=== PATIENT | female | born 1970 ===

== ENCOUNTER 2021-06-29 14:50 | Inpatient (IN) | payer OTHER ==
[~2021-06-29] VITALS: Ht 154.9 cm; Wt 113.0 kg
[2021-06-29] MEDS ORDERED: Vitamin D2000 UNIT PO (15:07)
[2021-06-29 15:45] LABS: BASOPHILS ABSOLUTE AUTO 0.04 K/mm3 (0.00-0.23); BASOPHILS PERCENT AUTO 0 % (0-2); EOSINOPHILS ABSOLUTE AUTO 0.14 K/mm3 (0.00-0.68); EOSINOPHILS PERCENT AUTO 1 % (0-6); Hematocrit 35.4 % (33.0-51.0); Hemoglobin 11.4 g/dL (11.5-16.0); IMMATURE GRAN ABSOLUTE AUTO 0.19 K/mm3 (0.00-0.10); IMMATURE GRAN PERCENT AUTO 2 % (0-1); LYMPHOCYTES ABSOLUTE AUTO 0.81 K/mm3 (0.84-5.20); LYMPHOCYTES PERCENT AUTO 7 % (21-46); MONOCYTES PERCENT AUTO 5 % (4-13); Mean Corpuscular HGB 29.4 pg (26.0-34.0); Mean Corpuscular HGB Conc 32.2 g/dL (31.5-36.5); Mean Corpuscular Volume 91 fL (80-100); Mean Platelet Volume 10.8 fL (9.1-12.4); NEUTROPHILS ABSOLUTE AUTO 9.52 K/mm3 (1.96-9.15); NEUTROPHILS PERCENT AUTO 85 % (41-73); NRBC ABSOLUTE 0.05 K/mm3 (0.00-0.02); NRBC Auto 0.4 /100 WBC (0.0-0.2); Platelet Count 316 K/mm3 (150-400); RDW Standard Deviation 46.7 fL (35.1-46.3); Red Blood Cell Count 3.88 M/mm3 (3.80-5.20)
[2021-06-29 16:09] LABS: Alanine Aminotransfer (ALT/SGP 32 U/L (12-78); Albumin, Blood 2.4 g/dL (3.4-5.0); Albumin/Globulin Ratio 0.5 (0.8-1.8); Alk Phos 127 U/L (50-136); Anion Gap 9 mmol/L (6-16); Aspartate Aminotrans (AST/SGOT 25 U/L (12-37); Beta HCG, Quantitative, Serum 2 mIU/mL (0-3); Bilirubin, Total 0.7 mg/dL (0.1-1.0); Blood Urea Nitrogen 11 mg/dL (8-24); Bun/Creatinine Ratio 16.1 (12.0-20.0); CO2, Blood 25 mmol/L (21-32); Calcium, Blood 8.1 mg/dL (8.5-10.1); Chloride, Blood 103 mmol/L (98-108); Creatinine, Blood 0.68 mg/dL (0.40-1.00); Globulin, Blood 4.8 g/dL (2.2-4.0); Glomerular Filtration Rate >60 (60-); Glucose, Blood 94 mg/dL (70-99); Potassium, Blood 3.3 mmol/L (3.5-5.5); Sodium, Blood 137 mmol/L (136-145); Total Protein, Blood 7.2 g/dL (6.4-8.2)
[2021-06-29 16:37] LABS: SARS-Cov-2 (COVID-19) PCR, MMC POSITIVE (NEGATIVE)
[2021-06-29 19:56] LABS: International Normalized Ratio 1.17; Prothrombin Time Results 12.5 Sec (9.7-11.5)
[2021-06-30 04:21] LABS: Anion Gap 10 mmol/L (6-16); Blood Urea Nitrogen 12 mg/dL (8-24); Bun/Creatinine Ratio 17.8 (12.0-20.0); CO2, Blood 23 mmol/L (21-32); Calcium, Blood 8.2 mg/dL (8.5-10.1); Chloride, Blood 105 mmol/L (98-108); Creatinine, Blood 0.67 mg/dL (0.40-1.00); Glomerular Filtration Rate >60 (60-); Glucose, Blood 110 mg/dL (70-99); Potassium, Blood 4.1 mmol/L (3.5-5.5); Sodium, Blood 138 mmol/L (136-145)
--- NOTE | 2021-06-30 06:31 | NUR ---
SHIFT SUMMARY PATIENT ARRIVED TO ROOM 330 VIA STRETCHER. ABLE TO SELF TRANSFER BETWEEN STRETCHER AND BED. PATIENT IS ALERT AND ORIENTED. NO COMPLAINTS OF PAIN. DOES HAVE SHORTNESS OF BREATH AND TACHYPNEA. ON 15 LITERS O2 VIA NRB. NO ACUTE ISSUES NOTED OVERNIGHT. IVS PATENT AND FLUSHED. BED IN LOWEST POSITION WITH WHEELS LOCKED. CALL LIGHT WITHIN REACH REPORT GIVEN TO ONCOMING RN.
--- NOTE | 2021-06-30 18:27 | NUR ---
PT RESTING IN BED AFTER DINNER AND PM MEDICATION ADMIN. PT REMAINS ON BEDREST WITH IND BSC PRIV. PT ALERT AND ORIENTED X4, MAKES NO COMPLAINTS AT THIS TIME. IV HEP RUNNING AND IV SITES WNL. STAFF WILL CONTINUE TO MONITOR.
[2021-07-01 00:42] LABS: Hematocrit 30.5 % (33.0-51.0); Hemoglobin 9.8 g/dL (11.5-16.0); Mean Corpuscular HGB 29.6 pg (26.0-34.0); Mean Corpuscular HGB Conc 32.1 g/dL (31.5-36.5); Mean Corpuscular Volume 92 fL (80-100); Mean Platelet Volume 10.4 fL (9.1-12.4); Platelet Count 322 K/mm3 (150-400); RDW Coefficient Variation 14.4 % (11.7-14.2); RDW Standard Deviation 48.4 fL (35.1-46.3); Red Blood Cell Count 3.31 M/mm3 (3.80-5.20); White Blood Cell Count 11.34 K/mm3 (4.00-11.30)
[2021-07-01 01:00] LABS: Alanine Aminotransfer (ALT/SGP 40 U/L (12-78); Albumin, Blood 2.3 g/dL (3.4-5.0); Albumin/Globulin Ratio 0.5 (0.8-1.8); Alk Phos 110 U/L (50-136); Anion Gap 7 mmol/L (6-16); Aspartate Aminotrans (AST/SGOT 33 U/L (12-37); Bilirubin, Total 0.3 mg/dL (0.1-1.0); Blood Urea Nitrogen 14 mg/dL (8-24); Bun/Creatinine Ratio 22.6 (12.0-20.0); CO2, Blood 25 mmol/L (21-32); Calcium, Blood 7.7 mg/dL (8.5-10.1); Chloride, Blood 108 mmol/L (98-108); Creatinine, Blood 0.62 mg/dL (0.40-1.00); Globulin, Blood 4.2 g/dL (2.2-4.0); Glomerular Filtration Rate >60 (60-); Glucose, Blood 155 mg/dL (70-99); Potassium, Blood 3.9 mmol/L (3.5-5.5); Sodium, Blood 140 mmol/L (136-145); Total Protein, Blood 6.5 g/dL (6.4-8.2)
--- NOTE | 2021-07-01 07:05 | NUR ---
SHIFT SUMMARY PATIENT ALERT AND ORIENTED. STATES SHE IS HAVING AN EASIER TIME BREATHING TODAY. CURRENTLY ON 14 LITERS O2 VIA NRB. NO ACUTE ISSUES NOTED. IV PATENT AND FLUSHED. BED IN LOWEST POSITION WITH WHEELS LOCKED. CALL LIGHT WITHIN REACH. REPORT GIVEN TO ONCOMING RN.
--- NOTE | 2021-07-01 18:38 | NUR ---
PATIENT RESTING IN BED AFTER DINNER AND PM MEDICATION ADMIN. PT MAKES NO COMPLAINTS. NO CHANGES NOTED. WILL CONTINUE TO MONITOR.
[2021-07-02 04:58] LABS: BASOPHILS ABSOLUTE AUTO 0.02 K/mm3 (0.00-0.23); BASOPHILS PERCENT AUTO 0 % (0-2); EOSINOPHILS PERCENT AUTO 0 % (0-6); Hematocrit 31.6 % (33.0-51.0); Hemoglobin 9.9 g/dL (11.5-16.0); IMMATURE GRAN ABSOLUTE AUTO 0.23 K/mm3 (0.00-0.10); IMMATURE GRAN PERCENT AUTO 3 % (0-1); LYMPHOCYTES ABSOLUTE AUTO 1.45 K/mm3 (0.84-5.20); LYMPHOCYTES PERCENT AUTO 16 % (21-46); MONOCYTES ABSOLUTE AUTO 0.63 K/mm3 (0.16-1.47); MONOCYTES PERCENT AUTO 7 % (4-13); Mean Corpuscular HGB 29.6 pg (26.0-34.0); Mean Corpuscular HGB Conc 31.3 g/dL (31.5-36.5); Mean Corpuscular Volume 94 fL (80-100); Mean Platelet Volume 10.4 fL (9.1-12.4); NEUTROPHILS ABSOLUTE AUTO 6.64 K/mm3 (1.96-9.15); NEUTROPHILS PERCENT AUTO 74 % (41-73); Platelet Count 303 K/mm3 (150-400); RDW Coefficient Variation 14.4 % (11.7-14.2); Red Blood Cell Count 3.35 M/mm3 (3.80-5.20); White Blood Cell Count 8.97 K/mm3 (4.00-11.30)
--- NOTE | 2021-07-02 05:14 | NUR ---
SHIFT SUMMARY A/O, ABLE TO MAKE NEEDS KNOWN. COOPERATIVE WITH CARE. CALLS AND ANSWERS QUESTIONS APPRORPIATELY. NO C/O PAIN/DISCOMFORT. INDPENDENT TO BSC. HEPARIN DRIP INFUSING WITHOUT COMPLICATIONS. APPEARED TO REST OFF AND ON OVERNIGHT. NO ACUTE CHANGES NOTED. BED REMAINS IN LOWEST POSITION. CALL LIGHT AND BELONGINGS WITHIN REACH. CONTINUE WITH CURRENT PLAN OF CARE. REPORT TO ONCOMING RN.
[2021-07-02 05:16] LABS: Anion Gap 8 mmol/L (6-16); Blood Urea Nitrogen 14 mg/dL (8-24); Bun/Creatinine Ratio 22.8 (12.0-20.0); CO2, Blood 23 mmol/L (21-32); Calcium, Blood 8.3 mg/dL (8.5-10.1); Chloride, Blood 109 mmol/L (98-108); Creatinine, Blood 0.61 mg/dL (0.40-1.00); Glomerular Filtration Rate >60 (60-); Glucose, Blood 118 mg/dL (70-99); Sodium, Blood 140 mmol/L (136-145)
--- NOTE | 2021-07-02 10:45 | NUR ---
RN NOTE: JOHANN FROM PHARMACY CALLED AND REPORTED PTT GOOD AND WILL CONTINUE HEPARIN ORDERED.
--- NOTE | 2021-07-02 13:30 | NUR ---
HEPARIN DC'D AFTER FIRST DOSE OF XARELTO GIVEN.
--- NOTE | 2021-07-02 19:32 | NUR ---
SHIFT SUMMARY: PT A/O X 4 STANDBY ASSIT. PT HAD NO ACUTE CHANGES. CONT TO BE ON NON REBREATHER AT 11 VLPM. HEPARIN DC'D AND STARTED XARELTO TODAY. PT TOLERATED WELL. PT EDUCATED ON MEDICATION. PT VU.
--- NOTE | 2021-07-03 03:50 | NUR ---
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 HOB ELEVATED ABOUT 30 DEGREES. MED TELE IN USE, DROPPED TO MID 40'S A FEW TIMES, BUT UPON BEDSIDE ASSESSMENTS - DENIED DISTRESS. DROPLET ISOLATOIN PRECAUTIONS MAINTAINED. CALL LIGHT IN REACH
[2021-07-03 05:24] LABS: Hematocrit 34.2 % (33.0-51.0); Hemoglobin 10.5 g/dL (11.5-16.0)
--- NOTE | 2021-07-03 10:09 | NUR ---
TITRATED PATIENT DOWN FROM NON-REBREATHER TO 6L O2/NC. O2 SAT 90-91% ON 6L/NC. RESP EVEN AND UNLABORED.
--- NOTE | 2021-07-03 18:10 | NUR ---
SHIFT SUMMARY: PT IMPROVING. A/O X3. PLEASANT AND COOPERATIVE. SWITCHED TO NC TODAY ON 6 LPM. ABLE TO TOLERATE SHORT MOMENTS W/OUT O2 WHEN UP TO BSC. PT HAD NO ACUTE INCIDENTS TODAY.
--- NOTE | 2021-07-04 04:45 | NUR ---
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 BREATH SOUNDS DIMINISHED PER AUSCULTATION. O2 AT 11L/MIN PER NC. MED TELE SINUS AT 82. ISOLAAATION PRECAUTIONS MAINTAINED. CALL LIGHT IN REACH
[2021-07-04 05:11] LABS: Hemoglobin 11.3 g/dL (11.5-16.0)
--- NOTE | 2021-07-04 14:01 | NUR ---
Spiritual Care visit provided. 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
--- NOTE | 2021-07-05 07:42 | NUR ---
SHIFT SUMMARY NO CHANGES OVERNIGHT
[2021-07-05] MEDS ORDERED: ACET325 PO (10:08)
[2021-07-05] MEDS ORDERED: GUAI600T33 PO (10:09)
[2021-07-05] MEDS ORDERED: DECADRON6 M1 PO (10:09)
[2021-07-05] MEDS ORDERED: XARELTO15 MG PO (10:10)
--- NOTE | 2021-07-05 14:45 | NUR ---
PT DISCHARGED AT 1425 NO DISTRESS NOTED. AOX4 AND COOPERATIVE OF CARE. PT HAS BEEN DOING WELL ON 6L MAINTAINING O2 IN THE 90s. PT INDEPENDENT IN ROOM. ALL PAPERWORK REVIEWED AND EDUCATIONAL MATERIAL SENT WITH PT. TRANSPORTED HOME VIA . ESCORTED OUT VIA WHEELCHAIR. O2 TANKS FOR HOME WERE LEFT FOR PT'S DISCHARGE PRIOR TO LEAVING.
== END 2021-07-05 14:45 | disposition home or self-care (01) | DRG 177 ==
LOC: ER 14:50 → MEDS 17:34 → ERHOLD 17:34 → MEDS 20:11
PROVIDERS: Emergency Medicine; Internal Medicine; Nurse Practitioner Acute Care; ADMIT Internal Medicine
PROC: 8E0ZXY6 Isolation (ICD-10-PCS; principal; 2021-06-29)
PROC: 3E0333Z Introduction of Anti-inflammatory into Peripheral Vein, Percutaneous Approach (ICD-10-PCS; 2021-06-29)
PROC: XW033E5 Introduction of Remdesivir Anti-infective into Peripheral Vein, Percutaneous Approach, New Technology Group 5 (ICD-10-PCS; 2021-06-29)
DX: U07.1 COVID-19 (principal); J96.01 Acute respiratory failure with hypoxia; I26.99 Other pulmonary embolism without acute cor pulmonale; J12.82 Pneumonia due to coronavirus disease 2019; Z68.42 Body mass index [BMI] 45.0-49.9, adult; E87.6 Hypokalemia; D64.9 Anemia, unspecified; E66.9 Obesity, unspecified; Z88.1 Allergy status to other antibiotic agents; Z79.899 Other long term (current) drug therapy
CPT/HCPCS: 36415; 71260; 80048; 80053; 81241; 83880; 84145; 84702; 85014; 85018; 85025; 85027; 85379; 85610; 85730; 86140; 93005; 93010; 93306; 94760; 94761; 94762; 96374; 97161; 99285-25; A9270; J1100; J1644; J1650; J3480; J7050; Q9967; U0004

== ENCOUNTER 2021-07-20 19:01 | Observation (INO) | payer OTHER ==
[~2021-07-20] VITALS: Ht 154.9 cm; Wt 114.0 kg
[~2021-07-20 19:01] MED LIST: ACET325 PO; DECADRON6 M1 PO; GUAI600T33 PO; Vitamin D2000 UNIT PO; XARELTO15 MG PO
[2021-07-20 21:58] LABS: BASOPHILS ABSOLUTE AUTO 0.02 K/mm3 (0.00-0.23); BASOPHILS PERCENT AUTO 0 % (0-2); EOSINOPHILS PERCENT AUTO 3 % (0-6); IMMATURE GRAN ABSOLUTE AUTO 0.04 K/mm3 (0.00-0.10); IMMATURE GRAN PERCENT AUTO 1 % (0-1); LYMPHOCYTES PERCENT AUTO 23 % (21-46); MONOCYTES ABSOLUTE AUTO 0.64 K/mm3 (0.16-1.47); MONOCYTES PERCENT AUTO 9 % (4-13); Mean Corpuscular HGB 30.5 pg (26.0-34.0); Mean Corpuscular HGB Conc 30.5 g/dL (31.5-36.5); Mean Corpuscular Volume 100 fL (80-100); Mean Platelet Volume 10.8 fL (9.1-12.4); NEUTROPHILS PERCENT AUTO 64 % (41-73); NRBC ABSOLUTE 0.04 K/mm3 (0.00-0.02); NRBC Auto 0.6 /100 WBC (0.0-0.2); Platelet Count 283 K/mm3 (150-400); RDW Coefficient Variation 18.3 % (11.7-14.2); RDW Standard Deviation 63.9 fL (35.1-46.3); Red Blood Cell Count 1.54 M/mm3 (3.80-5.20)
[2021-07-20 22:00] LABS: Hematocrit 15.4 % (33.0-51.0); Hemoglobin 4.7 g/dL (11.5-16.0)
[2021-07-20 22:18] LABS: Alanine Aminotransfer (ALT/SGP 20 U/L (12-78); Albumin, Blood 2.6 g/dL (3.4-5.0); Albumin/Globulin Ratio 0.8 (0.8-1.8); Alk Phos 85 U/L (50-136); Anion Gap 5 mmol/L (6-16); Aspartate Aminotrans (AST/SGOT 11 U/L (12-37); Bilirubin, Total 0.3 mg/dL (0.1-1.0); Blood Urea Nitrogen 9 mg/dL (8-24); Bun/Creatinine Ratio 11.9 (12.0-20.0); CO2, Blood 26 mmol/L (21-32); Calcium, Blood 7.8 mg/dL (8.5-10.1); Chloride, Blood 108 mmol/L (98-108); Creatinine, Blood 0.76 mg/dL (0.40-1.00); Globulin, Blood 3.1 g/dL (2.2-4.0); Glomerular Filtration Rate >60 (60-); Glucose, Blood 109 mg/dL (70-99); Potassium, Blood 3.9 mmol/L (3.5-5.5); Sodium, Blood 139 mmol/L (136-145); Total Protein, Blood 5.7 g/dL (6.4-8.2); Troponin I <0.015 ng/mL (0.000-0.040)
--- NOTE | 2021-07-21 05:58 | NUR ---
SHIFT SUMMARY: STEPHAN WALSH ADMITTED FOR [facility] WITH NEED FOR TRANSFUSION. THIS OCCURRED AFTER BEING PLACED ON XERELTO FOR DVT AFTER COVID. SHE STARTED HER PERIOD AND BLEED THROUGH 12 PADS AN HOUR. SHE HAS NOT BLEED FOR TWO DAYS NOW BUT HER HBG WAS 4.7 WHEN CHECKED BY HER DOCTOR. SHE STARTED RECEIVING BLOOD TRANSFUSIONS IN THE ER. A TOTAL OF 3 UNITS WILL BE INFUSED BY THE END OF THIS SHIFT. SHE HAS TOLERATED THEM WELL. VS WNL. AFEBRILE. RECOVERED FROM COVID. XERELTO STOPPED. WILL NEED HER H&H CHECKED AFTER TRANSFUSION. CALL LIGHT IN REACH.
[2021-07-21 08:42] LABS: Hematocrit 25.4 % (33.0-51.0); Hemoglobin 8.2 g/dL (11.5-16.0); Mean Corpuscular HGB 30.7 pg (26.0-34.0); Mean Corpuscular HGB Conc 32.3 g/dL (31.5-36.5); Mean Platelet Volume 10.4 fL (9.1-12.4); NRBC ABSOLUTE 0.03 K/mm3 (0.00-0.02); NRBC Auto 0.4 /100 WBC (0.0-0.2); Platelet Count 266 K/mm3 (150-400); RDW Coefficient Variation 16.4 % (11.7-14.2); RDW Standard Deviation 55.3 fL (35.1-46.3); Red Blood Cell Count 2.67 M/mm3 (3.80-5.20); White Blood Cell Count 7.53 K/mm3 (4.00-11.30)
[2021-07-21 08:48] LABS: Mean Corpuscular Volume 95 fL (80-100)
--- NOTE | 2021-07-21 15:51 | NUR ---
DISCHARGE DISCHARGE MEDICATIONS AND INSTRUCTIONS EXPLAINED TO PATIENT. PATIENT STATED UNDERSTANDING. FOLLOW UP WITH [facility] SCHEDULED. IV REMOVED WITHOUT ISSUE. BELONGINGS WITH PATIENT. PATIENT TRANSFERED TO PRIVATE VEHICLE VIA WHEELCHAIR.
== END 2021-07-21 15:50 | disposition home or self-care (01) ==
LOC: ER 19:01 → MEDS 19:02
PROVIDERS: Physician Assistant; ADMIT Internal Medicine
DX: D62 Acute posthemorrhagic anemia (principal); N92.1 Excessive and frequent menstruation with irregular cycle; U07.1 COVID-19; I26.99 Other pulmonary embolism without acute cor pulmonale; Z79.01 Long term (current) use of anticoagulants; Z88.0 Allergy status to penicillin
CPT/HCPCS: 36415; 76830; 76856; 80053; 81025; 83880; 84484; 85025; 85027; 86850; 86900; 86901; 86923; 93005; 93010; 93970; A9270; J7030; P9016

== ENCOUNTER → 2022-09-26 | Outpatient (CLI) | payer OTHER | LOC: LAB SHORT 16:50 → LAB 16:50 | PROVIDERS: Nurse Practitioner | DX: Z86.711 Personal history of pulmonary embolism (principal); Z87.59 Personal history of other complications of pregnancy, childbirth and the puerperium | CPT/HCPCS: 81241 ==